=== PATIENT | male | born 1985 | race African-American/Black ===

== ENCOUNTER 2020-02-16 13:39 | Emergency (ER) | payer MEDICARE ==
[~2020-02-16] VITALS: Ht 190.5 cm; Wt 85.7 kg
[2020-02-16 14:17] VITALS: BP 104/72
== END 2020-02-16 14:20 | disposition home or self-care (01) ==
LOC: M.ERS 13:39
DX: M79.661 Pain in right lower leg (principal); W06.XXXA Fall from bed, initial encounter; Y93.89 Activity, other specified; Y92.89 Other specified places as the place of occurrence of the external cause; Y99.8 Other external cause status

== ENCOUNTER 2020-12-14 14:57 | Emergency (ER) | payer MEDICARE ==
[~2020-12-14] VITALS: Ht 193 cm; Wt 81.7 kg
[2020-12-14] MEDS ORDERED: DOXYCYCLINE 10100 MG PO (15:35)
[2020-12-14 15:40] VITALS: BP 124/68
== END 2020-12-14 15:41 | disposition home or self-care (01) ==
LOC: M.ERS 14:57
DX: L02.211 Cutaneous abscess of abdominal wall (principal); F15.10 Other stimulant abuse, uncomplicated